=== PATIENT | male | born 1995 | race Native Hawaiian/Other Pacific Islander ===

== ENCOUNTER 2016-10-08 09:22 | Outpatient (CLI) | payer OTHER | END 2016-10-08 19:29 | disposition home or self-care (01) | LOC: LABW 09:22 | DX: Z11.3 Encounter for screening for infections with a predominantly sexual mode of transmission (principal); Z11.4 Encounter for screening for human immunodeficiency virus [HIV] | CPT/HCPCS: 36415; 81000; 86592; 86703; 87490; 87590; G0432 ==

== ENCOUNTER 2016-12-25 16:50 | Outpatient (CLI) | payer OTHER | END 2016-12-25 17:50 | disposition home or self-care (01) | LOC: LAB 16:50 | DX: R30.0 Dysuria (principal) | CPT/HCPCS: 81000 ==

== ENCOUNTER 2016-12-30 13:53 | Outpatient (CLI) | payer OTHER | END 2016-12-30 19:02 | disposition home or self-care (01) | LOC: LABW 13:53 | DX: R30.0 Dysuria (principal) | CPT/HCPCS: 87490; 87590 ==

== ENCOUNTER 2017-02-10 11:23 | Outpatient (CLI) | payer OTHER | END 2017-02-10 19:21 | disposition home or self-care (01) | LOC: LABW 11:23 | DX: R30.0 Dysuria (principal) | CPT/HCPCS: 81000; 87490; 87590 ==

== ENCOUNTER 2017-06-17 16:27 | Outpatient (CLI) | payer OTHER | END 2017-06-17 19:44 | disposition home or self-care (01) | LOC: LABW 16:27 | DX: Z11.3 Encounter for screening for infections with a predominantly sexual mode of transmission (principal) | CPT/HCPCS: 81000; 87490; 87590 ==

== ENCOUNTER 2017-06-29 16:04 | Outpatient (CLI) | payer OTHER | END 2017-06-29 20:01 | disposition home or self-care (01) | LOC: LABW 16:04 | DX: Z11.3 Encounter for screening for infections with a predominantly sexual mode of transmission (principal) | CPT/HCPCS: 81000; 87490; 87590 ==